=== PATIENT | female | born 1965 | race Caucasian/White ===

== ENCOUNTER 2017-06-28 15:40 | Emergency (ER) | payer OTHER ==
[2017-06-28] MEDS ORDERED: Famotidine 20 MG/2 ML SDV IVPUSH ONE (16:13)
[2017-06-28] MEDS ORDERED: methylPREDNISolone Sodium Succinate 125 MG/2 ML SDV IV STA (16:13)
[2017-06-28] MEDS ORDERED: diphenhydrAMINE 50 MG/ML SDV IVPUSH ONE (16:13)
--- NOTE | 2017-06-28 17:24 | EDM.PDOC ---
ED HPI GENERAL MEDICAL PROBLEM - General Chief Complaint: Allergic Reaction Stated Complaint: VOMITING AND ABDOMINAL PAIN Time Seen by Provider: 06/28/17 16:14 Source of Information: Reports: Patient History Limitations: Reports: No Limitations - History of Present Illness INITIAL COMMENTS - FREE TEXT/NARRATIVE: Presents reporting a allergic reaction. 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 Last had her injections couple weeks ago. Now, she reports a rash and pruritus. No breathing problems but she did have some vomiting. 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: Psychiatric History: Reports: Anxiety, Depression Endocrine/Metabolic History: Reports: Hypothyroidism Other Dermatologic History: hx nicolette breast augmentation - Infectious Disease History Infectious Disease History: Reports: MRSA - Past Surgical History Female Surgical History: Reports: Other (See Below) Other Female Surgeries/Procedures: breast augmentation, tummy tuck Social & Family History - Family History Cardiac: Reports: CAD GI: Reports: Other (See Below) Other GI Family History: Obesity Endocrine/Metabolic: Reports: Diabetes, Type I Oncologic: Reports: Breast, Lung - Tobacco Use Smoking Status *Q: Current Every Day Smoker Years of Tobacco use: 31 Packs/Tins Daily: 0.5 Used Tobacco, but Quit: Yes - Caffeine Use Caffeine Use: Reports: None - Alcohol Use Days Per Week of Alcohol Use: 2 Number of Drinks Per Day: 6 Total Drinks Per Week: 12 - Recreational Drug Use Recreational Drug Use: No Drug Use in Last 12 Months: No ED ROS ALLERGIC REACTION - Review of Systems Review Of Systems: ROS reveals no pertinent complaints other than HPI. ED EXAM GENERAL NO PERIP PULSE - Physical Exam Exam: See Below Exam Limited By: No Limitations General Appearance: Alert, No Apparent Distress Ears: Normal External Exam, Normal TMs Nose: Normal Inspection Throat/Mouth: Normal Inspection Head: Atraumatic, Normocephalic Neck: Normal Inspection. No: Lymphadenopathy (L), Lymphadenopathy (R) Respiratory/Chest: No Respiratory Distress, Lungs Clear, Normal Breath Sounds, No Accessory Muscle Use Cardiovascular: Normal Peripheral Pulses, Regular Rate, Rhythm, No Murmur GI/Abdominal: Soft Back Exam: Normal Inspection Extremities: Normal Inspection Neurological: Alert, Oriented Psychiatric: Normal Affect, Normal Mood Skin Exam: Warm, Dry, Intact, Normal Color, Other (Diffuse light pink, non- indurated rash over the back upper chest and neck and shoulders) Course - Vital Signs Last Recorded V/S: Last Vital Signs Temp 37.2 C 06/28/17 15:58 Pulse 90 06/28/17 15:58 Resp 18 06/28/17 15:58 BP 139/92 H 06/28/17 15:58 Pulse Ox 95 06/28/17 15:58 - Orders/Labs/Meds Meds: Medications Discontinued Medications Generic Name Dose Route Start Last Admin Trade Name Freq PRN Reason Stop Dose Admin Diphenhydramine HCl 50 mg 06/28/17 16:13 06/28/17 16:34 Benadryl IVPUSH 06/28/17 16:14 50 mg ONETIME ONE Administration Famotidine 20 mg 06/28/17 16:13 06/28/17 16:28 Pepcid IVPUSH 06/28/17 16:14 20 mg ONETIME ONE Administration Methylprednisolone Sodium Succinate 125 mg 06/28/17 16:13 06/28/17 16:27 Solu-Medrol IV 06/28/17 16:14 125 mg ONETIME STA Administration - Re-Assessments/Exams Free Text/Narrative Re-Assessment/Exam: 06/28/17 17:23 States she feels much improved. Pruritus resolved Departure - Departure Time of Disposition: 17:23 Disposition: Home, Self-Care 01 Condition: Good Clinical Impression: Allergic reaction Qualifiers: Encounter type: initial encounter Qualified Code(s): T78.40XA - Allergy, unspecified, initial encounter - Discharge Information Referrals: PCP,Unknown [Primary Care Provider] - [facility] [Outside] [facility] [Outside] Additional Instructions: 1. Karolina twice daily. 2. Benadryl 25-50 mg in the evening as needed for itching or rash 3. Pepcid OTC 1 tab twice daily 4. Prednisone 20 mg 1 tab daily 5 days. Please check it with your silver miner blasting before starting this medication. You were given Solu-Medrol 125 mg IV here in the emergency room today. 5. Return for wheezing, breathing problems, worsening or not improving symptoms
[2017-06-28 17:47] VITALS: BP 116/72
== END 2017-06-28 17:48 | disposition home or self-care (01) ==
LOC: MW.ED 15:40
DX: T78.40XA Allergy, unspecified, initial encounter (principal); L29.9 Pruritus, unspecified; Z79.899 Other long term (current) drug therapy; Z91.011 Allergy to milk products; Z87.891 Personal history of nicotine dependence; X58.XXXA Exposure to other specified factors, initial encounter
CPT/HCPCS: 96374; 96375; 99284; J1200; J2930

== ENCOUNTER 2022-11-25 23:45 | Observation (INO) | payer BC, OTHER ==
[2022-11-26] MEDS ORDERED: Sodium Chloride 0.9% 2.5 ML Syringe FLUSH PRN (02:25)
[2022-11-26] MEDS ORDERED: Albuterol/Ipratropium 3.0-0.5 MG/3 ML Neb Soln NEB ONE (02:25)
[2022-11-26] MEDS ORDERED: predniSONE 20 MG Tab PO ONE (02:26)
[2022-11-26 02:32] LABS: BASOPHILS ABSOLUTE AUTO 0.1 K/uL (0.0-0.1); BASOPHILS PERCENT AUTO 0.9 % (0.0-1.5); EOSINOPHILS ABSOLUTE AUTO 0.6 K/uL (0.0-0.7); EOSINOPHILS PERCENT AUTO 6.4 % (0.0-7.0); HEMATOCRIT 45.4 % (36.0-46.0); HEMOGLOBIN 15.1 g/dL (12.0-16.0); LYMPHOCYTES ABSOLUTE AUTO 2.4 K/uL (0.6-2.4); LYMPHOCYTES PERCENT AUTO 27.4 % (16.0-40.0); MEAN CORPUSCULAR HEMOGLOBIN 30.9 pg (27.0-32.0); MEAN CORPUSCULAR HGB CONC 33.3 g/dL (31.0-37.0); MONOCYTES ABSOLUTE AUTO 1.1 K/uL (0.0-0.8); MONOCYTES PERCENT AUTO 12.4 % (0.0-15.0); NEUTROPHILS ABSOLUTE AUTO 4.6 K/uL (1.4-5.7); NEUTROPHILS PERCENT AUTO 52.9 % (48.0-80.0); NRBC ABSOLUTE 0 K/uL; PLATELET COUNT,PLT 266 K/uL (150-400); RED BLOOD CELL COUNT 4.88 M/uL (4.30-5.90); WHITE BLOOD CELL COUNT,WBC 8.66 K/uL (4.0-11.0)
[2022-11-26] MEDS: Sodium Chloride 0.9% 10 ML Syringe FLUSH PRN ×2 (02:45→02:48)
[2022-11-26 02:52] LABS: ALBUMIN 4.1 g/dL (3.4-5.0)
[2022-11-26 03:47] LABS: A/G RATIO 1.1 (0.9-1.6); BILIRUBIN TOTAL 0.5 mg/dL (0.2-1.0); CALCIUM 9.9 mg/dL (8.5-10.1); CARBON DIOXIDE,CO2 30.7 mmol/L (21.0-32.0); CREATININE 1.2 mg/dL (0.6-1.0); EST CRCL DRUG DOSING (CG) 47.66 mL/min; POTASSIUM,K 4.8 mmol/L (3.5-5.1)
[2022-11-26] MEDS ORDERED: Albuterol/Ipratropium 3.0-0.5 MG/3 ML Neb Soln NEB STA (05:37)
[2022-11-26] MEDS ORDERED: Acetaminophen 325 MG Tab PO PRN (09:29)
[2022-11-26] MEDS ORDERED: Polyethylene Glycol 3350 Powder 17 GM Packet PO PRN (09:29)
[2022-11-26] MEDS: Enoxaparin 40 MG/0.4 ML Syringe SUBCUT SCH (10:21)
[2022-11-26] MEDS: Albuterol/Ipratropium 3.0-0.5 MG/3 ML Neb Soln NEB PRN ×2 (11:58→18:40)
[2022-11-26] MEDS: cefTRIAXone 1 GM in Sodium Chloride 0.9% 50 ML IV SCH (12:30)
[2022-11-26] MEDS: predniSONE 20 MG Tab PO SCH (12:57)
[2022-11-26] MEDS: Labetalol 100 MG Tab PO SCH ×2 (12:57→20:43)
[2022-11-26] MEDS: Vortioxetine Hydrobromide [Trintellix] 20 MG Tablet PO SCH (13:48)
[2022-11-26] MEDS: Montelukast 10 MG Tab PO SCH (20:44)
[2022-11-27] MEDS: Albuterol/Ipratropium 3.0-0.5 MG/3 ML Neb Soln NEB PRN (05:20)
[2022-11-27 06:28] LABS: BASOPHILS PERCENT AUTO 0.2 % (0.0-1.5); EOSINOPHILS PERCENT AUTO 0.4 % (0.0-7.0); HEMATOCRIT 43.5 % (36.0-46.0); HEMOGLOBIN 14.1 g/dL (12.0-16.0); LYMPHOCYTES ABSOLUTE AUTO 2.4 K/uL (0.6-2.4); LYMPHOCYTES PERCENT AUTO 21.8 % (16.0-40.0); MEAN CORPUSCULAR HEMOGLOBIN 30.3 pg (27.0-32.0); MEAN CORPUSCULAR HGB CONC 32.4 g/dL (31.0-37.0); MEAN CORPUSCULAR VOLUME 93.5 fL (80.0-98.0); MONOCYTES ABSOLUTE AUTO 1.4 K/uL (0.0-0.8); MONOCYTES PERCENT AUTO 12.5 % (0.0-15.0); NEUTROPHILS ABSOLUTE AUTO 7.1 K/uL (1.4-5.7); NEUTROPHILS PERCENT AUTO 65.1 % (48.0-80.0); NRBC ABSOLUTE 0 K/uL; PLATELET COUNT,PLT 278 K/uL (150-400); RED BLOOD CELL COUNT 4.65 M/uL (4.30-5.90); WHITE BLOOD CELL COUNT,WBC 10.94 K/uL (4.0-11.0)
[2022-11-27] MEDS: Levothyroxine 75 MCG Tab PO SCH (06:32)
[2022-11-27] MEDS: Omeprazole 20 MG Cap.CR PO SCH (06:32)
[2022-11-27] MEDS: Levothyroxine 100 MCG Tab PO SCH (06:32)
[2022-11-27 06:49] LABS: A/G RATIO 0.9 (0.9-1.6); ALBUMIN 3.6 g/dL (3.4-5.0); BILIRUBIN TOTAL 0.2 mg/dL (0.2-1.0); CARBON DIOXIDE,CO2 24.2 mmol/L (21.0-32.0); CREATININE 1.1 mg/dL (0.6-1.0); EST CRCL DRUG DOSING (CG) 49.9 mL/min; POTASSIUM,K 3.9 mmol/L (3.5-5.1); PROTEIN TOTAL,TP 7.7 g/dL (6.4-8.2)
[2022-11-27] MEDS: Labetalol 100 MG Tab PO SCH ×2 (08:15→21:12)
[2022-11-27] MEDS: predniSONE 20 MG Tab PO SCH (08:15)
[2022-11-27] MEDS: Albuterol/Ipratropium 3.0-0.5 MG/3 ML Neb Soln NEB SCH ×4 (10:24→21:12)
[2022-11-27] MEDS: Enoxaparin 40 MG/0.4 ML Syringe SUBCUT SCH (10:44)
[2022-11-27] MEDS: cefTRIAXone 1 GM in Sodium Chloride 0.9% 50 ML IV SCH (11:54)
[2022-11-27] MEDS: Vortioxetine Hydrobromide [Trintellix] 20 MG Tablet PO SCH (18:28)
[2022-11-27] MEDS: Montelukast 10 MG Tab PO SCH (21:12)
[2022-11-28] MEDS: Albuterol/Ipratropium 3.0-0.5 MG/3 ML Neb Soln NEB SCH ×4 (02:11→13:25)
[2022-11-28] MEDS: Omeprazole 20 MG Cap.CR PO SCH (06:40)
[2022-11-28] MEDS: Levothyroxine 75 MCG Tab PO SCH (06:40)
[2022-11-28] MEDS: Levothyroxine 100 MCG Tab PO SCH (06:40)
[2022-11-28 06:50] LABS: BASOPHILS PERCENT AUTO 0.3 % (0.0-1.5); EOSINOPHILS ABSOLUTE AUTO 0.2 K/uL (0.0-0.7); EOSINOPHILS PERCENT AUTO 1.8 % (0.0-7.0); HEMATOCRIT 39.2 % (36.0-46.0); HEMOGLOBIN 12.8 g/dL (12.0-16.0); LYMPHOCYTES ABSOLUTE AUTO 3.6 K/uL (0.6-2.4); LYMPHOCYTES PERCENT AUTO 30.7 % (16.0-40.0); MEAN CORPUSCULAR HEMOGLOBIN 30.6 pg (27.0-32.0); MEAN CORPUSCULAR HGB CONC 32.7 g/dL (31.0-37.0); MEAN CORPUSCULAR VOLUME 93.8 fL (80.0-98.0); MONOCYTES PERCENT AUTO 8.3 % (0.0-15.0); NEUTROPHILS PERCENT AUTO 58.9 % (48.0-80.0); NRBC ABSOLUTE 0 K/uL; PLATELET COUNT,PLT 260 K/uL (150-400); RED BLOOD CELL COUNT 4.18 M/uL (4.30-5.90); WHITE BLOOD CELL COUNT,WBC 11.84 K/uL (4.0-11.0)
[2022-11-28 07:20] LABS: A/G RATIO 0.9 (0.9-1.6); ALBUMIN 3.3 g/dL (3.4-5.0); BILIRUBIN TOTAL 0.2 mg/dL (0.2-1.0); CALCIUM 8.8 mg/dL (8.5-10.1); CARBON DIOXIDE,CO2 26.5 mmol/L (21.0-32.0); CREATININE 1.2 mg/dL (0.6-1.0); EST CRCL DRUG DOSING (CG) 45.74 mL/min; POTASSIUM,K 3.6 mmol/L (3.5-5.1); PROTEIN TOTAL,TP 6.8 g/dL (6.4-8.2)
[2022-11-28] MEDS: predniSONE 20 MG Tab PO SCH (08:22)
[2022-11-28] MEDS: Labetalol 100 MG Tab PO SCH (08:28)
[2022-11-28] MEDS: Enoxaparin 40 MG/0.4 ML Syringe SUBCUT SCH (09:30)
[2022-11-28] MEDS: Vortioxetine Hydrobromide [Trintellix] 20 MG Tablet PO SCH (11:01)
[2022-11-28] MEDS: cefTRIAXone 1 GM in Sodium Chloride 0.9% 50 ML IV SCH (12:49)
[2022-11-28 13:17] VITALS: BP 142/75; PULSE 84
== END 2022-11-28 14:16 | disposition home or self-care (01) ==
LOC: MW.ED 23:45 → MW.MS 11-26 05:38
PROVIDERS: ADMIT Internal Medicine; ATTEND Internal Medicine
DX: J45.901 Unspecified asthma with (acute) exacerbation (principal); I10 Essential (primary) hypertension; G47.30 Sleep apnea, unspecified; K21.9 Gastro-esophageal reflux disease without esophagitis; F41.9 Anxiety disorder, unspecified; F32.A Depression, unspecified; E03.9 Hypothyroidism, unspecified; F17.210 Nicotine dependence, cigarettes, uncomplicated; E66.9 Obesity, unspecified; Z79.890 Hormone replacement therapy; Z79.899 Other long term (current) drug therapy; Z79.52 Long term (current) use of systemic steroids; Z20.822 Contact with and (suspected) exposure to COVID-19; Z88.8 Allergy status to other drugs, medicaments and biological substances; Z68.32 Body mass index [BMI] 32.0-32.9, adult
CPT/HCPCS: 36415; 71045; 80053; 84484; 85025; 87635; 93005; 94640; 96365; 96372; 96376; 99285; A9270; G0378; J0696; J1650; J3490; 93010; 99283; J7620-GY; U0002

== ENCOUNTER 2023-01-20 08:09 | Day surgery (SDC) | payer BC ==
[~2023-01-20 08:09] MED LIST: Dexmedetomidine 200 MCG/2 ML SDV ONE; Lactated Ringers 1,000 ML IV SCH; Sodium Chloride 0.9% 10 ML Syringe FLUSH PRN; Sodium Chloride 0.9% 2.5 ML Syringe FLUSH PRN; Sodium Chloride 0.9% 20 ML SDV IV PRN; Water For Injection, Sterile 20 ML ONE; propofoL 50 ML ONE
[2023-01-20 11:21] VITALS: BP 98/56; PULSE 77
== END 2023-01-20 10:50 | disposition home or self-care (01) ==
LOC: MW.SDS 08:09
PROVIDERS: ATTEND Surgery
DX: D12.5 Benign neoplasm of sigmoid colon (principal); K44.9 Diaphragmatic hernia without obstruction or gangrene; K31.7 Polyp of stomach and duodenum; K57.30 Diverticulosis of large intestine without perforation or abscess without bleeding; K31.89 Other diseases of stomach and duodenum; F41.9 Anxiety disorder, unspecified; J45.909 Unspecified asthma, uncomplicated; F32.A Depression, unspecified; G47.33 Obstructive sleep apnea (adult) (pediatric); E03.9 Hypothyroidism, unspecified; F17.200 Nicotine dependence, unspecified, uncomplicated; F17.210 Nicotine dependence, cigarettes, uncomplicated; Z88.8 Allergy status to other drugs, medicaments and biological substances; Z79.890 Hormone replacement therapy; Z79.899 Other long term (current) drug therapy
CPT/HCPCS: J2704; J3490; J7120